=== PATIENT | female | born 1990 | race Caucasian/White ===

== ENCOUNTER 2021-06-12 01:29 | Emergency (ER) | payer SELFPAY ==
[2021-06-12] MEDS ORDERED: LORazepam 1 MG Tab PO STA (01:50)
== END 2021-06-12 02:25 | disposition home or self-care (01) ==
LOC: FB.ED 01:29
DX: R07.89 Other chest pain (principal); F41.0 Panic disorder [episodic paroxysmal anxiety]; M25.511 Pain in right shoulder
CPT/HCPCS: 99283; A9270